=== PATIENT | male | born 1960 | race American Indian/Alaskan Native ===

== ENCOUNTER 2025-09-16 13:03 | Emergency (ER) | payer BC ==
[~2025-09-16] VITALS: Ht 175.3 cm; Wt 89.7 kg
[2025-09-16] MEDS ORDERED: ZITHROMAX250 MG PO (14:20)
[2025-09-16] MEDS ORDERED: NORVASC5 MG PO (14:20)
[2025-09-16] MEDS ORDERED: AZITHROMYCIN 250 MG TAB PO ONE (14:30)
[2025-09-16] MEDS ORDERED: AMLODIPINE BESYLATE 5 MG TAB PO ONE (14:30)
== END 2025-09-16 14:26 | disposition home or self-care (01) ==
LOC: ED 13:03
DX: J22 Unspecified acute lower respiratory infection (principal)
CPT/HCPCS: 71045; 99283-25